=== PATIENT | male | born 1995 | race Caucasian/White ===

== ENCOUNTER 2020-07-18 22:30 | Inpatient (IN) ==
[2020-07-18 23:49] LABS: ABS Eosinophils 0.1 10^3/ul (0-0.6); ABS Lymphocytes 1.9 10^3/ul (1.0-4.8); ABS Monocytes 1.5 10^3/ul (0-0.8); ABS Neutrophils 8.5 10^3/ul (1.5-7.7); Eosinophil % 0.6 %; Hematocrit 44 % (42-52); Lymphocyte % 15.6 %; Mean Corpuscular HGB Conc 34 g/dL (31-36); Mean Corpuscular Hemoglobin 32 pg (27-31); Mean Corpuscular Volume 95 fL (80-94); Mean Platelet Volume 7.4 fL (7.4-10.4); Platelet Count 233 10^3/uL (150-450); Red Blood Count 4.68 10^6 /uL (4.18-5.48); Red Cell Distribution Width 13 % (10-15)
[2020-07-19 00:09] LABS: ALT 58 U/L (7-52); AST 118 U/L (13-39); Albumin 4.3 g/dL (3.2-5.2); Alkaline Phosphatase 48 U/L (34-104); Anion Gap 9 mmol/L (2-11); Blood Urea Nitrogen 26 mg/dL (6-24); CO2 Carbon Dioxide 27 mmol/L (22-32); Calcium 9.1 mg/dL (8.6-10.3); Chloride 98 mmol/L (101-111); EGFR African American 124.9 (>60); EGFR Non-African American 103.2 (>60); Globulin 2.2 g/dL (2-4); Glucose 98 mg/dL (70-100); Potassium 3.7 mmol/L (3.5-5.0); Sodium 134 mmol/L (135-145); Total Protein 6.5 g/dL (6.4-8.9)
[2020-07-19 00:11] LABS: Acetaminophen < 15 mcg/mL; Alcohol, S < 10 mg/dL (<10)
[2020-07-19 00:23] LABS: TSH Ultra Thyroid Stim Horm 0.97 mcIU/mL (0.34-5.60)
[2020-07-19] MEDS ORDERED: Al Hydrox/Mg Hydrox/Simet LIQ 30 ML UDC PO PRN (07:13)
[2020-07-19] MEDS ORDERED: Nicotine GUM 2MG FRUIT FLAVOR PO PRN (08:00)
[2020-07-19] MEDS ORDERED: Multivitamins/Minerals TAB ONE (13:03)
[2020-07-19] MEDS: Nicotine PATCH 14 MG/24 HR PATCH TRANSDERM SCH (13:07)
[2020-07-19] MEDS ORDERED: Albuterol HFA INHALER 8 gm MDI INH PRN (14:11)
[2020-07-19] MEDS: Vitamin THERAPEUTIC TAB PO SCH (15:28)
[2020-07-20] MEDS: Vitamin THERAPEUTIC TAB PO SCH (08:47)
[2020-07-20] MEDS: Nicotine PATCH 14 MG/24 HR PATCH TRANSDERM SCH (09:53)
[2020-07-21] MEDS: Vitamin THERAPEUTIC TAB PO SCH (09:33)
[2020-07-21] MEDS: Nicotine PATCH 14 MG/24 HR PATCH TRANSDERM SCH (09:45)
[2020-07-22 07:05] LABS: HDL Cholesterol 50.3 mg/dL
[2020-07-22] MEDS: Vitamin THERAPEUTIC TAB PO SCH (08:49)
[2020-07-22] MEDS: Nicotine PATCH 14 MG/24 HR PATCH TRANSDERM SCH (08:50)
[2020-07-23 08:57] VITALS: BP 116/58
[2020-07-23] MEDS: Vitamin THERAPEUTIC TAB PO SCH (10:11)
[2020-07-23] MEDS: Nicotine PATCH 14 MG/24 HR PATCH TRANSDERM SCH (10:37)
== END 2020-07-23 14:17 | disposition home or self-care (01) ==
LOC: ED 22:30 → BSU 07-19 06:16 → ED 07-19 07:52 → BSU 07-19 18:26
PROVIDERS: ADMIT Psychiatry & Neurology Psychiatry; ATTEND Psychiatry & Neurology Psychiatry

== ENCOUNTER 2021-01-12 01:06 | Inpatient (IN) ==
[2021-01-12 02:39] LABS: ABS Basophils 0.1 10^3/ul (0-0.2); ABS Eosinophils 0.1 10^3/ul (0-0.6); ABS Lymphocytes 1.6 10^3/ul (1.0-4.8); ABS Monocytes 0.9 10^3/ul (0-0.8); ABS Neutrophils 5.2 10^3/ul (1.5-7.7); Eosinophil % 1.5 %; Hematocrit 47 % (42-52); Hemoglobin 16.3 g/dL (14.0-18.0); Lymphocyte % 20.5 %; Mean Corpuscular HGB Conc 35 g/dL (31-36); Mean Corpuscular Hemoglobin 32 pg (27-31); Mean Corpuscular Volume 93 fL (80-94); Mean Platelet Volume 7.9 fL (7.4-10.4); Platelet Count 276 10^3/uL (150-450); Red Blood Count 5.05 10^6 /uL (4.18-5.48); Red Cell Distribution Width 13 % (10-15); White Blood Count 7.9 10^3/uL (3.5-10.8)
[2021-01-12 02:45] LABS: Urine Appearance Clear; Urine Bilirubin Negative (Negative); Urine Blood Negative (Negative); Urine Color Yellow; Urine Glucose Negative (Negative); Urine Ketones Negative (Negative); Urine Nitrite Negative (Negative); Urine Protein 1+(30 mg/dL) (Negative); Urine Specific Gravity 1.028 (1.002-1.030); Urine Urobilinogen Negative (Negative)
[2021-01-12 02:57] LABS: ALT 7 U/L (7-52); AST 14 U/L (13-39); Albumin 5.1 g/dL (3.2-5.2); Albumin/Globulin Ratio 1.6 (1-3); Alkaline Phosphatase 62 U/L (35-149); Anion Gap 12 mmol/L (2-11); Blood Urea Nitrogen 14 mg/dL (6-24); CO2 Carbon Dioxide 24 mmol/L (22-32); Calcium 9.8 mg/dL (8.6-10.3); Chloride 104 mmol/L (101-111); Globulin 3.1 g/dL (2-4); Glucose 92 mg/dL (70-100); Potassium 3.5 mmol/L (3.5-5.0); Sodium 140 mmol/L (135-145); Total Protein 8.2 g/dL (6.4-8.9)
[2021-01-12 02:59] LABS: Urine Benzodiazepine Screen None Detected (None Detect); Urine Cannabinoids Screen Presumptive Positive (None Detect); Urine Opiates Screen None Detected (None Detect)
[2021-01-12 03:07] LABS: Urine Bacteria 1+ (Absent); Urine Red Blood Cell Trace(0-2/hpf) (Absent); Urine Squamous Epithelial Cell Present (Absent); Urine White Blood Cell 1+(6-10/hpf) (Absent)
[2021-01-12 03:34] LABS: Acetaminophen < 15 mcg/mL; Alcohol, S < 13 mg/dL (<13); Salicylate < 2.50 mg/dL (<30)
[2021-01-12 03:50] LABS: TSH Ultra Thyroid Stim Horm 2.67 mcIU/mL (0.34-5.60)
[2021-01-12 11:48] LABS: Rapid COVID-19 Molecular Undetected (Undetected)
[2021-01-12] MEDS ORDERED: Al Hydrox/Mg Hydrox/Simet LIQ 30 ML UDC PO PRN (12:35)
[2021-01-12] MEDS: CMCS:Estradiol 1 mg TAB (NF) PO SCH (20:57)
[2021-01-13 08:43] LABS: HDL Cholesterol 42.1 mg/dL
[2021-01-13] MEDS: Vitamin THERAPEUTIC TAB PO SCH (09:43)
[2021-01-13] MEDS: CMCS:Estradiol 1 mg TAB (NF) PO SCH ×2 (09:43→20:51)
[2021-01-13] MEDS ORDERED: Flu vaccine *QUAD* 2021-22* 0.5 ML SYRINGE IM ONE (11:00)
[2021-01-14] MEDS: CMCS:Estradiol 1 mg TAB (NF) PO SCH ×2 (08:23→21:18)
[2021-01-14] MEDS: Vitamin THERAPEUTIC TAB PO SCH (08:23)
[2021-01-14 21:50] VITALS: BP 124/71
[2021-01-15] MEDS: Vitamin THERAPEUTIC TAB PO SCH (08:47)
[2021-01-15] MEDS: CMCS:Estradiol 1 mg TAB (NF) PO SCH (08:47)
== END 2021-01-15 11:20 | disposition home or self-care (01) | DRG 885 ==
LOC: ED 01:06 → SUATTDRO 13:55 → BSU 13:55
PROVIDERS: ADMIT Internal Medicine; ATTEND Psychiatry & Neurology Psychiatry